=== PATIENT | female | born 1960 | race Caucasian/White ===

== ENCOUNTER 2017-04-29 06:13 | Day surgery (SDC) | payer BC ==
--- NOTE | ~2017-04-29 | EGD ---
EGD REPORT [facility] [address] [address] NAME: JACQUELINE DIXON : 56 STATUS : [place] [facility] [place] PAT#: [id number] AGE: 56 ADM/REG DATE : 04/29/17 MR#: [id number] REPORT SERV DATE: 04/29/17 DICTATED BY: SHAKIRA MITCHELL DATE: 04/29/17 REPORT STATUS : Draft TRANSCRIBED BY: [facility] DATE: 04/29/17 Endoscopy Center Patient Name: Jacqueline Dixon Date of : 1960 Attending MD: SHAKIRA MITCHELL MD Procedure Date No Time: 04/29/2017 Procedure: Upper GI endoscopy Indications: Heartburn, Suspected esophageal reflux Referring MD: BRYAN ZEE MD Medicines: Monitored Anesthesia Care Complications: No immediate complications. Procedure: Pre-Anesthesia Assessment: - ASA Grade Assessment: III - A patient with severe systemic disease. After obtaining informed consent, the endoscope was passed under direct vision. Throughout the procedure, the patient's blood pressure, pulse, and oxygen saturations were monitored continuously. The GIF H190 [id number] was introduced through the mouth, and advanced to the second part of duodenum. The upper GI endoscopy was accomplished without difficulty. The patient tolerated the procedure well. Findings: A non-obstructing Schatzki ring (acquired) was found in the lower third of the esophagus. A 3 cm hiatus hernia was present. A few 4 to 7 mm sessile polyps with no stigmata of recent bleeding were found in the gastric body. Biopsies were taken with a cold forceps for histology. Patchy mildly erythematous mucosa without bleeding was found in the gastric antrum. Biopsies were taken with a cold forceps for histology. The cardia and gastric fundus were normal on retroflexion. The duodenal bulb and 2nd part of the duodenum were normal. Impression: - Non-obstructing Schatzki ring. - Hiatus hernia. - A few gastric polyps. Biopsied. - Erythematous mucosa in the antrum. Biopsied. - Normal duodenal bulb and 2nd part of the duodenum. Recommendation: - Patient has a contact number available for emergencies. The signs and symptoms of potential delayed complications were discussed with the patient. Return to normal activities tomorrow. Written discharge EGD REPORT [address] [place]. [address] NAME: JACQUELINE DIXON : [birth year] STATUS : REG [facility] [place] PAT#: [id number] AGE: 56 ADM/REG DATE : 04/29/17 MR#: [id number] REPORT SERV DATE: 04/29/17 DICTATED BY: SHAKIRA MITCHELL DATE: 04/29/17 REPORT STATUS : Draft TRANSCRIBED BY: [employer] DATE: 04/29/17 instructions were provided to the patient. - Regular diet. - Continue present medications. - Follow an antireflux regimen. Procedure Code(s): --- Professional --- 79508, Esophagogastroduodenoscopy, flexible, transoral; with biopsy, single or multiple Diagnosis Code(s): --- Professional --- K22.2, Esophageal obstruction K44.9, Diaphragmatic hernia without obstruction or gangrene K31.7, Polyp of stomach and duodenum K31.9, Disease of stomach and duodenum, unspecified R12, Heartburn CPT copyright 2013 [employer]. All rights reserved. The codes documented in this report are preliminary and upon lawyer probate review may be revised to meet current compliance requirements. SHAKIRA MITCHELL MD 04/29/2017 8:07 AM This report has been signed electronically. Number of Addenda: 0 Note Initiated On: 04/29/2017 7:53 AM Scope Withdrawal Time 0 hours 0 minutes 0 seconds [address] [place] [id number]
--- NOTE | ~2017-04-29 | EGD ---
EGD REPORT [facility] [address] [address] NAME: JACQUELINE DIXON : 56 [place] [facility] [place] [id number] AGE: 56 ADM/REG DATE : 04/29/17 MR#: [id number] REPORT SERV DATE: 04/29/17 DICTATED BY: SHAKIRA MITCHELL DATE: 04/29/17 REPORT STATUS : Draft [facility]ANSCRIBED [facility]: [facility] DATE: 04/29/17 Endoscopy Center Patient Name: Jacqueline Dixon Date of : 1960 Attending MD: SHAKIRA MITCHELL MD Procedure Date No Time: 04/29/2017 Procedure: Colonoscopy Indications: Screening for colorectal malignant neoplasm Referring MD: BRYAN ZEE MD Medicines: Monitored Anesthesia Care Complications: No immediate complications. Procedure: Pre-Anesthesia Assessment: - ASA Grade Assessment: III - A patient with severe systemic disease. After I obtained informed consent, the scope was passed under direct vision. Throughout the procedure, the patient's blood pressure, pulse, and oxygen saturations were monitored continuously. The PCF [id number] was introduced through the anus and advanced to the cecum, identified by appendiceal orifice and ileocecal valve. The colonoscopy was performed without difficulty. The patient tolerated the procedure well. The quality of the bowel preparation was good. Findings: The digital rectal exam was normal. Pertinent negatives include no palpable rectal lesions. The terminal ileum appeared normal. A pedunculated polyp was found in the cecum. The polyp was 10 mm in size. The polyp was removed with a hot snare. Resection and retrieval were complete. A sessile polyp was found in the ascending colon. The polyp was 5 mm in size. The polyp was removed with a cold biopsy forceps. Resection and retrieval were complete. A pedunculated polyp was found in the rectum. The polyp was 12 mm in size. The polyp was removed with a hot snare. Resection and retrieval were complete. Hemorrhoids were found during retroflexion and were mild. Multiple diverticula were found in the sigmoid colon. Impression: - The examined portion of the ileum was normal. - One 10 mm polyp in the cecum. Resected and retrieved. - One 5 mm polyp in the ascending colon. Resected and retrieved. - One 12 mm polyp in the rectum. Resected and retrieved. EGD REPORT [place] [id number] [facility] [place]. [address] NAME: JACQUELINE DIXON : [birth year] STATUS : REG [facility]#: [id number] AGE: 56 ADM/REG DATE : 04/29/17 MR#: [id number] REPORT SERV DATE: 04/29/17 DICTATED BY: SHAKIRA MITCHELL DATE: 04/29/17 REPORT STATUS : Draft [facility]ANSCRIBED BY: [facility] DATE: 04/29/17 - Hemorrhoids. - Diverticulosis in the sigmoid colon. Recommendation: - Patient has a contact number available for emergencies. The signs and symptoms of potential delayed complications were discussed with the patient. Return to normal activities tomorrow. Written discharge instructions were provided to the patient. - Regular diet. - Continue present medications. - Repeat colonoscopy for surveillance based on pathology results. - Return to GI clinic PRN. Procedure Code(s): --- Professional --- 66557, Colonoscopy, flexible, proximal to splenic flexure; with removal of tumor(s), polyp(s), or other lesion(s) by snare technique 16584, 59, Colonoscopy, flexible, proximal to splenic flexure; with biopsy, single or multiple Diagnosis Code(s): --- Professional --- K64.9, Unspecified hemorrhoids K57.30, Diverticulosis of large intestine without perforation or abscess without bleeding K62.1, Rectal polyp D12.2, Benign neoplasm of ascending colon D12.0, Benign neoplasm of cecum Z12.11, Encounter for screening for malignant neoplasm of colon CPT copyright 2013 [employer]. All rights reserved. The codes documented in this report are preliminary and upon supervisor putty and caluking review may be revised to meet current compliance requirements. SHAKIRA MITCHELL MD 04/29/2017 8:27 AM This report has been signed electronically. Number of Addenda: 0 Note Initiated On: 04/29/2017 7:52 AM Scope Withdrawal Time 0 hours 15 minutes 5 seconds [id number] [id number]
[~2017-04-29 06:13] MED LIST: ADVIL PO; BENTYL10 PO; GLUCOTRO10 PO; HYDROCHLOROT25 MG PO; LIPITOR20 PO; NORV5 PO; PROZAC PO; TRADJENTA5 MG PO
== END 2017-04-29 23:59 | disposition home or self-care (01) ==
LOC: DMU 06:13
PROVIDERS: Internal Medicine Gastroenterology
PROC: 0DB68ZX Excision of Stomach, Via Natural or Artificial Opening Endoscopic, Diagnostic (ICD-10-PCS; 2017-04-29)
PROC: 0DB78ZX Excision of Stomach, Pylorus, Via Natural or Artificial Opening Endoscopic, Diagnostic (ICD-10-PCS; 2017-04-29)
PROC: 0DBP8ZX Excision of Rectum, Via Natural or Artificial Opening Endoscopic, Diagnostic (ICD-10-PCS; principal; 2017-04-29 07:30)
PROC: 0DBK8ZX Excision of Ascending Colon, Via Natural or Artificial Opening Endoscopic, Diagnostic (ICD-10-PCS; 2017-04-29 07:30)
PROC: 0DBH8ZX Excision of Cecum, Via Natural or Artificial Opening Endoscopic, Diagnostic (ICD-10-PCS; 2017-04-29 07:30)
DX: Z12.11 Encounter for screening for malignant neoplasm of colon (principal); D12.2 Benign neoplasm of ascending colon; D12.0 Benign neoplasm of cecum; D12.8 Benign neoplasm of rectum; K64.9 Unspecified hemorrhoids; K57.30 Diverticulosis of large intestine without perforation or abscess without bleeding; K29.50 Unspecified chronic gastritis without bleeding; K22.2 Esophageal obstruction; K31.7 Polyp of stomach and duodenum; K44.9 Diaphragmatic hernia without obstruction or gangrene; K31.9 Disease of stomach and duodenum, unspecified; I10 Essential (primary) hypertension; E11.9 Type 2 diabetes mellitus without complications; Z88.5 Allergy status to narcotic agent; Z90.49 Acquired absence of other specified parts of digestive tract; Z98.890 Other specified postprocedural states
CPT/HCPCS: 82962; 88305; A9270-GY